=== PATIENT | male | born 1985 | race Caucasian/White ===

== ENCOUNTER 2024-01-21 11:08 | Emergency (ER) | payer OTHER ==
[~2024-01-21] VITALS: Ht 162.6 cm; Wt 79.0 kg
[2024-01-21 11:11] VITALS: BP 142/89; TEMP 97.3; O2SAT 100
[2024-01-21] MEDS: CLINDAMYCIN 150MG CAPSULE PO ONE (12:09)
[2024-01-21] MEDS: BOOSTRIX VACCINE (TETANUS/DIPHTH/ACEL. PERTUSSIS) 0.5ML SYR IM.IMMUN ONE (12:09)
[2024-01-21] MEDS ORDERED: CLEO300C2 PO (12:46)
== END 2024-01-21 13:15 | disposition home or self-care (01) ==
LOC: M ED 11:08
DX: S61.032A Puncture wound without foreign body of left thumb without damage to nail, initial encounter (principal); S60.112A Contusion of left thumb with damage to nail, initial encounter; W29.8XXA Contact with other powered hand tools and household machinery, initial encounter; Z23 Encounter for immunization; Z88.0 Allergy status to penicillin; Z88.2 Allergy status to sulfonamides; Y92.009 Unspecified place in unspecified non-institutional (private) residence as the place of occurrence of the external cause; Y93.89 Activity, other specified; Y99.9 Unspecified external cause status; Z79.2 Long term (current) use of antibiotics